=== PATIENT | female | born 1970 | race Caucasian/White ===

== ENCOUNTER 2022-03-15 18:00 | Emergency (ER) | payer MEDICAID, SELFPAY ==
[2022-03-15 18:03] VITALS: BP 155/106; PULSE 105; RESP 18; TEMP 36.8; O2SAT 100
--- NOTE | 2022-03-15 19:47 | PC.NURSE ---
No answer when called for room.
--- NOTE | 2022-03-15 19:50 | PC.NURSE ---
Pt approached triage desk, requesting to leave. Pt states you guys are busy, Im going to go home . Pt advised on benefits of staying to see provider and risks of leaving, verbalized understanding. Pts IV removed with tip intact. Pt ambulated out of ED with steady gait, in no obvious distress.
== END 2022-03-16 01:21 | disposition left against medical advice (07) ==
LOC: ANHED 20:09
DX: S80.02XA Contusion of left knee, initial encounter (principal)
CPT/HCPCS: 99199